=== PATIENT | male | born 1985 | race Caucasian/White ===

== ENCOUNTER → 2023-02-23 | Outpatient (CLI) | payer BC ==
--- NOTE | 2023-02-23 11:34 | CA ---
Transthoracic Echo Report Name: Jimmy Samuel Age: 37 Gender: M : 1985 Exam Date: 02/23/2023 09:36 Exam Location: [place] [facility] Ht (in): 71 Wt (lb): 145 Ordering Physician: Rochelle Rangel DO Attending/Referring Phys: Annalee Smyth [facility] Fire Control Technician G Gertrude Horton [facility] Procedure CPT: Indications: R07.9 R94.31 Cardiac Hx: Technical Quality: Fair Contrast 1: Total Dose (mL): Contrast 2: Total Dose (mL): MEASUREMENTS (Male / Female) Normal Values 2D ECHO LV Diastolic Diameter PLAX 4.8 cm 4.2 - 5.9 / 3.9 - 5.3 cm LV Systolic Diameter PLAX 3.1 cm IVS Diastolic Thickness 0.9 cm 0.6 - 1.0 / 0.6 - 0.9 cm LVPW Diastolic Thickness 0.8 cm 0.6 - 1.0 / 0.6 - 0.9 cm LV Relative Wall Thickness 0.4 M-MODE Aortic Root Diameter MM 2.4 cm LA Systolic Diameter MM 3.3 cm LA Ao Ratio MM 1.4 AV Cusp Separation MM 2.1 cm DOPPLER AV Peak Velocity 134.6 cm/s AV Peak Gradient 7.3 mmHg AV Mean Velocity 98.0 cm/s AV Mean Gradient 4.2 mmHg AV Velocity Time Integral 27.6 cm LVOT Peak Velocity 114.9 cm/s LVOT Peak Gradient 5.3 mmHg LVOT Velocity Time Integral 19.5 cm Mitral E Point Velocity 104.7 cm/s Mitral A Point Velocity 103.6 cm/s Mitral E to A Ratio 1.0 MV Deceleration Time 178.3 ms LV E' Lateral Velocity 16.0 cm/s Mitral E to LV E' Lateral Ratio 6.6 LV E' Septal Velocity 7.3 cm/s Mitral E to LV E' Septal Ratio 14.4 TR Peak Velocity 217.5 cm/s TR Peak Gradient 18.9 mmHg Right Atrial Pressure 3.0 mmHg Pulmonary Artery Systolic Pressu 21.9 mmHg Right Ventricular Systolic Press 21.9 mmHg FINDINGS Left Ventricle Left ventricular wall thickness normal. Left ventricular cavity size normal. Normal left ventricular systolic function with no obvious regional wall motion abnormalities. Left ventricular ejection fraction is estimated at 55-60%. Right Ventricle Normal right ventricular size. Right Atrium Normal right atrial size. Left Atrium Normal left atrial size. Mitral Valve Structurally normal mitral valve. Trace mitral regurgitation. Aortic Valve Trileaflet aortic valve. Trace aortic regurgitation. Tricuspid Valve Structurally normal tricuspid valve. Trace tricuspid regurgitation. Pulmonic Valve Pulmonic valve not well visualized. Pericardium No pericardial effusion. Aorta Normal size aortic root and proximal ascending aorta. CONCLUSIONS Normal LV function Previewed by: Dr. Td Etienne MD (Electronically Signed) Final Date: 23 February 2023 11:33
--- NOTE | 2023-02-23 11:36 | CA ---
Exercise Stress Test Report Name: Jimmy Samuel Exam Date: 02/23/2023 09:06 Exam Location: [place] Stress Ht (in): 71 Wt (lb): 142 BSA: 1.82 Ordering Phys: Rochelle Rangel DO Referring Phys: Annalee Smyth [facility] Technologist: Tunde Kang Age: 37 Gender: M : 1985 Procedure CPT: Indications: R07.9 R94.31 ICD-10 Codes: Patient History: CHEST PAIN, DIFFICULTY IN BREATHING, PRIOR SMOKER Medications: Meds past 24 hrs: Pretest Chest Pain: STRESS TEST Adi Protocol Exercise Duration (min:sec): 15:[address] Depressions (mm): Angina Score: Mao Score: Resting HR (bpm): 80 Peak HR (bpm): 169 Resting BP (mmHg): 102 / 64 Peak BP (mmHg): 129 / 55 MPHR: 185 Target HR: 157 % MPHR: 91 METS: 14.9 Total Dose: Peak Dose: Atropine: Double Product: 51580 BP Response: Stress Termination: MAX EXERTION/TARGET HR Stress Symptoms: CHEST PAIN AT MAX EXERTION Stress Summary: ECG ANALYSIS Resting ECG: Normal sinus rhythm normal axis normal intervals Stress ECG: Patient exercised on Adi protocol for 15 minutes achieving 85% of predicted maximal heart rate without chest pain or diagnostic ST segment depression CONCLUSIONS Excellent exercise tolerance Negative stress test by EKG criteria Dr. Td Etienne MD (Electronically Signed) Final Date: 23 February 2023 11:35
== END | disposition home or self-care (01) ==
LOC: RADECHMAIN 08:46
PROVIDERS: ATTEND Family Medicine
DX: R94.31 Abnormal electrocardiogram [ECG] [EKG] (principal); R07.9 Chest pain, unspecified; R06.00 Dyspnea, unspecified; Z87.891 Personal history of nicotine dependence
CPT/HCPCS: 93017; 93306